=== PATIENT | male | born 1985 | race Two or more races ===

== ENCOUNTER 2022-03-05 18:23 | Inpatient (IN) | payer OTHER ==
[2022-03-05 19:15] VITALS: BMI 25.8
[2022-03-05] MEDS ORDERED: chlordiazePOXIDE HCL 25 MG CAPSULE PO PRN (19:49)
[2022-03-05] MEDS ORDERED: BENZOCAINE/MENTHOL (CHLORASEPTIC ) LOZENGE MM PRN (19:49)
[2022-03-05] MEDS ORDERED: METHOCARBAMOL 500 MG TABLET PO PRN (19:49)
[2022-03-05] MEDS ORDERED: DICYCLOMINE HCL 10 MG CAPSULE PO PRN (19:49)
[2022-03-05] MEDS ORDERED: LOPERAMIDE HCL 2 MG CAPSULE PO PRN (19:49)
[2022-03-05] MEDS ORDERED: MAGNESIUM HYDROX 2400MG/30ML ORAL SUSPENSION 30 ML CUP PO PRN (19:49)
[2022-03-05] MEDS ORDERED: IBUPROFEN 400 MG TABLET (FP) PO PRN (19:49)
[2022-03-05] MEDS ORDERED: ONDANSETRON *ODT* 4 MG TABLET SL PRN (19:49)
[2022-03-05] MEDS ORDERED: BISMUTH SUBSALICYLATE 524 MG/30 ML PO PRN (19:49)
[2022-03-05] MEDS ORDERED: ACETAMINOPHEN 325 MG TABLET (FP) PO PRN ×2 (19:49)
[2022-03-05] MEDS ORDERED: MAGNESIUM CITRATE 300 ML BOTTLE PO PRN (19:49)
[2022-03-05] MEDS ORDERED: NICOTINE 10 MG CARTRIDGE (INHALER) IH PRN (19:49)
[2022-03-05] MEDS ORDERED: IBUPROFEN 600 MG TABLET (FP) PO PRN (19:49)
[2022-03-05] MEDS: THIAMINE HCL 100 MG TABLET (FP) PO SCH (22:40)
[2022-03-05] MEDS: hydrOXYzine PAMOATE 25 MG CAPSULE (FP) PO SCH (22:40)
[2022-03-05] MEDS: MELATONIN 5 MG TABLETS PO SCH (22:40)
[2022-03-05] MEDS: chlordiazePOXIDE HCL 25 MG CAPSULE PO SCH (22:41)
[2022-03-05] MEDS: CLOTRIMAZOLE 1% CREAM TP SCH (23:12)
[2022-03-06] MEDS: chlordiazePOXIDE HCL 25 MG CAPSULE PO SCH ×4 (05:31→22:09)
[2022-03-06] MEDS: hydrOXYzine PAMOATE 25 MG CAPSULE (FP) PO SCH ×5 (05:31→22:09)
[2022-03-06 10:20] LABS: CALCIUM 8.9 mg/dL (8.5-10.1)
[2022-03-06 10:21] LABS: ALBUMIN 3.4 g/dl (3.4-5.0); BLOOD UREA NITROGEN 5.7 mg/dL (7-18)
[2022-03-06] MEDS: CLOTRIMAZOLE 1% CREAM TP SCH ×2 (10:23→22:12)
[2022-03-06] MEDS: PRENATAL VITAMINS W/ FOLIC ACID TABLET (FP) PO SCH (10:23)
[2022-03-06 10:24] LABS: CREATININE 0.6 mg/dL (0.55-1.3)
[2022-03-06 10:26] LABS: BILIRUBIN,TOTAL 1.2 mg/dL (0.2-1); TOT PROT 7.3 g/dl (6.4-8.2)
[2022-03-06 10:35] LABS: HEMATOCRIT 38.4 % (35.4-49); HEMOGLOBIN 12.9 GM/dL (11.7-16.9); MCH 32.1 pg (25.7-33.7); MCHC 33.5 g/dl (32.0-35.9); MEAN CELL VOLUME 95.7 fl (80-96); MEAN PLT VOLUME 9.5 fl (7.5-11.1); PLATELET COUNT 105 10^3/uL (134-434); RBC 4.02 M/mm3 (4.00-5.60); RDW 15.5 % (11.9-15.9); WHITE BLOOD COUNT 5.7 K/mm3 (4.0-10.0)
[2022-03-06] MEDS: MAG HYDROX/AL HYDROX/SIMETH 30 ML UNIT-DOSE CUP PO PRN (18:51)
[2022-03-06] MEDS: MELATONIN 5 MG TABLETS PO SCH (22:08)
[2022-03-06] MEDS: THIAMINE HCL 100 MG TABLET (FP) PO SCH (22:09)
[2022-03-07] MEDS: chlordiazePOXIDE HCL 25 MG CAPSULE PO SCH ×4 (05:52→22:11)
[2022-03-07] MEDS: hydrOXYzine PAMOATE 25 MG CAPSULE (FP) PO SCH ×5 (05:52→22:11)
[2022-03-07] MEDS: PRENATAL VITAMINS W/ FOLIC ACID TABLET (FP) PO SCH (10:13)
[2022-03-07] MEDS: CLOTRIMAZOLE 1% CREAM TP SCH ×2 (10:13→22:14)
[2022-03-07] MEDS: MAG HYDROX/AL HYDROX/SIMETH 30 ML UNIT-DOSE CUP PO PRN ×2 (13:38→22:12)
[2022-03-07] MEDS: MELATONIN 5 MG TABLETS PO SCH (22:11)
[2022-03-07] MEDS: THIAMINE HCL 100 MG TABLET (FP) PO SCH (22:11)
[2022-03-08] MEDS ORDERED: chlordiazePOXIDE HCL 10 MG CAPSULE PO PRN
[2022-03-08] MEDS: chlordiazePOXIDE HCL 10 MG CAPSULE PO SCH ×4 (06:09→22:16)
[2022-03-08] MEDS: hydrOXYzine PAMOATE 25 MG CAPSULE (FP) PO SCH ×5 (06:09→22:16)
[2022-03-08] MEDS: PRENATAL VITAMINS W/ FOLIC ACID TABLET (FP) PO SCH (10:12)
[2022-03-08] MEDS: CLOTRIMAZOLE 1% CREAM TP SCH ×2 (11:02→22:16)
[2022-03-08] MEDS: MAG HYDROX/AL HYDROX/SIMETH 30 ML UNIT-DOSE CUP PO PRN (18:07)
[2022-03-08] MEDS: MELATONIN 5 MG TABLETS PO SCH (22:16)
[2022-03-08] MEDS: THIAMINE HCL 100 MG TABLET (FP) PO SCH (22:16)
[2022-03-09] MEDS: chlordiazePOXIDE HCL 10 MG CAPSULE PO SCH ×2 (06:31→17:26)
[2022-03-09] MEDS: hydrOXYzine PAMOATE 25 MG CAPSULE (FP) PO SCH ×5 (06:32→22:07)
[2022-03-09] MEDS: PRENATAL VITAMINS W/ FOLIC ACID TABLET (FP) PO SCH (10:21)
[2022-03-09] MEDS: CLOTRIMAZOLE 1% CREAM TP SCH ×2 (10:22→22:07)
[2022-03-09 18:39] VITALS: RESP 18
[2022-03-09] MEDS: THIAMINE HCL 100 MG TABLET (FP) PO SCH (22:07)
[2022-03-09] MEDS: MELATONIN 5 MG TABLETS PO SCH (22:07)
[2022-03-09] MEDS: MAG HYDROX/AL HYDROX/SIMETH 30 ML UNIT-DOSE CUP PO PRN (22:09)
[2022-03-10] MEDS ORDERED: chlordiazePOXIDE HCL 10 MG CAPSULE PO ONE (05:00)
[2022-03-10] MEDS: hydrOXYzine PAMOATE 25 MG CAPSULE (FP) PO SCH (05:45)
[2022-03-10 09:14] VITALS: BP 116/77; PULSE 103; TEMP 97.1
== END 2022-03-10 09:47 | disposition home or self-care (01) | DRG 775 ==
LOC: YASAS 18:23 → Y3N 20:41
PROVIDERS: ADMIT Allergy & Immunology; ATTEND Surgery
PROC: HZ2ZZZZ Detoxification Services for Substance Abuse Treatment (ICD-10-PCS; principal; 2022-03-05)
DX: F10.230 Alcohol dependence with withdrawal, uncomplicated (principal); F19.24 Other psychoactive substance dependence with psychoactive substance-induced mood disorder; D69.6 Thrombocytopenia, unspecified; B36.0 Pityriasis versicolor; R94.5 Abnormal results of liver function studies
CPT/HCPCS: 36415; 80053; 85027; 86780; 87811; C9803-CS; U0003; U0005